=== PATIENT | male | born 1995 | race Caucasian/White ===

== ENCOUNTER 2019-11-04 06:23 | Emergency (ER) | payer SELFPAY ==
[~2019-11-04] VITALS: Ht 182.9 cm; Wt 74.7 kg
[2019-11-04] MEDS: ALBUTEROL 90 MCG/ACT 8GM HFA INHALER INH SCH ×3 (07:10→08:03)
--- NOTE | 2019-11-04 08:07 | REP ---
Portable chest x-ray: Single view. History: Chest tightness. Shortness of breath. Comparison chest x-ray October 22, 2007. Findings: Monitoring electrodes are seen. The lungs are well inflated and clear. Pleural angles are sharp. Heart size is normal. No significant bony abnormality is seen. Impression: Negative chest x-ray. Electronically Signed by Joe Reddy MD 11/04/2019 07:59 A
[2019-11-04] MEDS ORDERED: PROAAER10 INH (08:13)
[2019-11-04] MEDS ORDERED: PRED20TA PO (08:13)
[2019-11-04 08:45] VITALS: BP 134/74
--- NOTE | 2019-11-05 07:09 | ECGEPIP ---
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
== END 2019-11-04 09:06 | disposition home or self-care (01) ==
LOC: M ED 06:23
DX: R06.02 Shortness of breath (principal); R06.2 Wheezing; F17.220 Nicotine dependence, chewing tobacco, uncomplicated
CPT/HCPCS: 71045; 87486; 87581; 87633; 87798; 93005; 93041; 94640; 94760; 99284; C9803; U0003

== ENCOUNTER → 2022-01-13 | Outpatient (CLI) | payer OTHER ==
[~2022-01-13] MED LIST: PRED20TA PO; PROAAER10 INH
[2022-01-13 18:41] LABS: HEMATOCRIT 42.8 % (42.0-52.0); HEMOGLOBIN 14.8 g/dl (13.5-17.5); MEAN CORPUSCULAR HEMOGLOBIN 29.5 pg (27.0-33.0); MEAN CORPUSCULAR HGB CONC 34.6 g/dl (32.0-36.5); MEAN CORPUSCULAR VOLUME 85.4 fl (80.0-96.0); PLATELET COUNT, AUTOMATED 302 10^3/uL (150-450); RED BLOOD COUNT 5.01 10^6/uL (4.30-6.10); WHITE BLOOD COUNT 7.2 10^3/uL (4.0-10.0)
[2022-01-13 18:55] LABS: HEMOGLOBIN A1c 5.2 %
[2022-01-13 19:18] LABS: ALBUMIN 4.4 GM/DL (3.2-5.2); ALT/SGPT 28 U/L (12-78); BILIRUBIN,TOTAL 0.6 MG/DL (0.2-1.0); BLOOD UREA NITROGEN 11 MG/DL (7-18); CALCIUM LEVEL 9.3 MG/DL (8.5-10.1); CARBON DIOXIDE LEVEL 31 MEQ/L (21-32); CHLORIDE LEVEL 105 MEQ/L (98-107); CHOLESTEROL LEVEL 226 MG/DL (<200); CHOLESTEROL RISK RATIO 3.704 (<5); CREATININE FOR GFR 0.84 MG/DL (0.70-1.30); GLOMERULAR FILTRATION RATE > 60.0 (>60); GLUCOSE, FASTING 89 MG/DL (70-100); HDL CHOLESTEROL 61 MG/DL (>40); LDL CHOLESTEROL 146 MG/DL (<100); NON-HDL-C 165 MG/DL; POTASSIUM SERUM 3.9 MEQ/L (3.5-5.1); SODIUM LEVEL 141 MEQ/L (136-145); TOTAL PROTEIN 7.3 GM/DL (6.4-8.2); TRIGLYCERIDES LEVEL 96 MG/DL (<150)
[2022-01-13 19:30] LABS: TOTAL 25(OH) VITAMIN D 26.6 NG/ML (30.0-100.0)
== END ==
LOC: M LAB 18:01
PROVIDERS: ATTEND Family Medicine
DX: D64.9 Anemia, unspecified (principal); R53.83 Other fatigue; E03.9 Hypothyroidism, unspecified